=== PATIENT | male | born 1950 | race Caucasian/White ===

== ENCOUNTER 2018-04-22 22:31 | Emergency (ER) | payer OTHER ==
[~2018-04-22] VITALS: Ht 167.6 cm; Wt 77.0 kg
[2018-04-22 22:35] VITALS: TEMP 36.7; Ht 167.6 cm; Wt 77.0 kg
[2018-04-22] MEDS ORDERED: SODIUM CHLORIDE 0.9% 1000ML 1,000 ML IV STA (22:52)
[2018-04-22] MEDS ORDERED: MoRPHine SULFATE 4 MG/ML 1 ML CARP\\VIAL IV STA (22:52)
[2018-04-22] MEDS ORDERED: ONDANSETRON INJ 2 MG/ML 2 ML VIAL IV STA (22:52)
[2018-04-22] MEDS ORDERED: LORAZEPAM 2 MG/ML 1 ML VIAL IV STA (22:53)
[2018-04-22] MEDS ORDERED: OPTIRAY 320 IV PRN (23:00)
[2018-04-22 23:17] LABS: BASO % 0.2 %; BASO ABS # 0.03 K/uL (0-0.2); EOS ABS # 0.14 K/uL (0-0.5); HEMATOCRIT 41.6 % (42-52); HEMOGLOBIN 14.6 g/dL (14.0-18.0); IG# 0.04 K/uL (0.00-0.02); LYMPH ABS # 4.07 K/uL (1.2-3.4); MEAN CELL VOLUME 89.3 fL (80-100); MEAN CORPUSCULAR HEMOGLOBIN 31.3 pg (25-34); MEAN CORPUSCULAR HGB CONC 35.1 g/dl (32-36); MONO % 7.8 %; MONO ABS # 1.09 K/uL (0.11-0.59); NEUT % 61.7 %; NEUT ABS # 8.66 K/uL (1.4-6.5); PLATELET COUNT 342 K/uL (130-400); WHITE BLOOD COUNT 14.03 K/uL (4.8-10.8)
[2018-04-22] MEDS ORDERED: PATIENT'S ALLERGY INFO NEEDS ENTERED STA (23:22)
[2018-04-22 23:25] LABS: ISTAT IONIZED CALCIUM 1.17 mmol/l (1.12-1.32); ISTAT POTASSIUM 4.2 mEq/L (3.3-5.0)
[2018-04-22 23:39] LABS: ALBUMIN 3.9 gm/dl (3.4-5.0); ALKALINE PHOSPHATASE 102 U/L (45-117); ALT/SGPT 26 U/L (12-78); AST/SGOT 20 U/L (15-37); BLOOD UREA NITROGEN 24 mg/dl (7-18); CALCIUM 9.2 mg/dl (8.5-10.1); CARBON DIOXIDE 27 mmol/L (21-32); GLUCOSE 99 mg/dl (70-99); LIPASE 225 U/L (73-393); POTASSIUM 4.2 mmol/L (3.5-5.1); SODIUM 137 mmol/L (136-145); TOTAL PROTEIN 8.1 gm/dl (6.4-8.2)
[2018-04-23] MEDS ORDERED: LISI10TA PO (00:13)
[2018-04-23] MEDS ORDERED: ROSU20TA PO (00:14)
[2018-04-23] MEDS ORDERED: FLUO10CA48 PO (00:15)
[2018-04-23] MEDS ORDERED: CHN/1 PO (00:16)
[2018-04-23] MEDS ORDERED: ASPI1POW10 PO (00:17)
[2018-04-23 01:06] VITALS: PULSE 61
[2018-04-23 02:31] VITALS: BP 107/55
[2018-04-23 02:32] VITALS: O2SAT 100
[2018-04-23] MEDS ORDERED: ONDA4TAB10 SL (02:50)
[2018-04-23] MEDS ORDERED: ONDANSETRON HOME PACK 4MG OD TAB PO ONE (03:00)
[2018-04-23] MEDS ORDERED: ATIVAN 1MG HOMEPACK PO ONE (03:00)
--- NOTE | 2018-04-23 04:27 | EMERGENCY ROOM VISIT NOTE ---
History First contact with patient: 22:43 Chief Complaint: CHEST PAIN Stated Complaint: CHEST PAIN, ABDOMINAL PAIN Nursing Triage Summary: Pt reports chest pain that started yesterday. Pt with nausea and vomiting. History of Present Illness The patient is a 68 year old male who presents to the Emergency Room with complaints of intermittent chest pain with nausea and vomiting for the past day and half. Patient states that he felt nauseous and threw up a few times. He developed chest pain that has been intermittent for the past day and a half. Pain described as aching, ranging in severity 5 out of 10 that radiates to his back. Nothing makes it better or worse. He does smoke and he smokes marijuana. Patient does have high blood pressure and cholesterol. No prior heart testing. Patient denies abdominal pain, fever, chills, cough, congestion , urinary symptoms, leg pain or swelling localized weakness. Review of Systems An 10 system review of systems was completed with positives and pertinent negatives listed in the HPI. Past Medical/Surgical History Hypertension, hyperlipidemia, cataract surgery Social History Smoking Status: Current Every Day Smoker Drug Use: marijuana Marital Status: Housing Status: lives with family Current/Historical Medications Scheduled Fluoxetine (Prozac), 10 MG PO DAILY Lisinopril (Prinivil), 10 MG PO DAILY Ondasetron Odt (Zofran Odt), 4 MG SL Q6H Rosuvastatin Calcium (Crestor), 20 MG PO DAILY Varenicline (Chantix), 1 TAB PO BID Scheduled PRN Gppimwe-Agmbyeubghhot-Scvahhch (Goodys Extra Strength), 1 PKT PO TID PRN for Pain Physical Exam Vital Signs Date Time Temp Pulse Resp B/P (MAP) Pulse Ox O2 Delivery O2 Flow Rate FiO2 04/23/18 02:32 100 Room Air 04/23/18 02:31 107/55 04/23/18 01:32 122/57 04/23/18 01:06 61 20 99 04/23/18 01:05 122/57 04/23/18 00:36 59 19 99 04/23/18 00:31 99/66 04/23/18 00:30 54 16 99 Room Air 04/23/18 00:15 55 20 98 04/23/18 00:01 110/55 04/23/18 00:00 62 14 98 04/22/18 23:45 66 20 98 Room Air 04/22/18 23:34 119/60 04/22/18 23:15 64 04/22/18 23:00 Room Air 04/22/18 23:00 72 14 04/22/18 22:57 Room Air 04/22/18 22:35 36.7 73 16 105/69 97 Room Air Physical Exam VITALS: Vitals are noted on the nurse's note and reviewed by myself. Vital signs reviewed. GENERAL: White male, in no acute distress, nondiaphoretic, well-developed well- nourished. SKIN: The skin was without rashes, erythema, edema, or bruising. There is no tenting of the skin. Capillary reflex less than 2 seconds. HEAD: Normocephalic atraumatic. EARS: External auditory canals clear, tympanic membranes pearly irizarry without erythema or effusion bilaterally. EYES: Pupils equal round and reactive to light and accommodation. Conjunctivae without injection, sclerae without icterus. Extraocular movements intact. NOSE: Patent, turbinates without inflammation or discharge. No sinus tenderness. MOUTH: Mucous membranes moist. Pharynx without erythema or exudate. Uvula midline. Airway patent. Tongue does not deviate. NECK: Supple without nuchal rigidity. No lymphadenopathy. No thyromegaly. Cervical spine is nontender. No JVD. HEART: Regular rate and rhythm without murmurs gallops or rubs. LUNGS: Clear to auscultation bilaterally without wheezes, rales or rhonchi. No retractions or accessory muscle use. ABDOMEN: Positive bowel sounds x 4. Normal tympanic percussion. Soft, nontender, without masses or organomegaly. Chopra sign negative. No guarding or rebound tenderness. No CVA tenderness MUSCULOSKELETAL: No muscle atrophy, erythema, or edema noted. NEURO: Patient was alert and oriented to person place and time. Normal sensation to light and sharp touch. No focal neurological deficits. Medical Decision & Procedures Laboratory Results 04/22/18 23:05 Red Blood Count 4.66, Mean Corpuscular Volume 89.3, Mean Corpuscular Hemoglobin 31.3, Mean Corpuscular Hemoglobin Concent 35.1, Mean Platelet Volume 9.0, Neutrophils (%) (Auto) 61.7, Lymphocytes (%) (Auto) 29.0, Monocytes (%) (Auto) 7.8, Eosinophils (%) (Auto) 1.0, Basophils (%) (Auto) 0.2, Neutrophils # (Auto) 8.66, Lymphocytes # (Auto) 4.07, Monocytes # (Auto) 1.09, Eosinophils # (Auto) 0.14, Basophils # (Auto) 0.03 04/22/18 23:05 Test 04/22/18 23:05 04/22/18 23:10 04/22/18 23:13 04/23/18 02:33 White Blood Count 14.03 K/uL (4.8-10.8) Red Blood Count 4.66 M/uL (4.7-6.1) Hemoglobin 14.6 g/dL (14.0-18.0) Hematocrit 41.6 % (42-52) Mean Corpuscular Volume 89.3 fL (80-100) Mean Corpuscular Hemoglobin 31.3 pg (25-34) Mean Corpuscular Hemoglobin Concent 35.1 g/dl (32-36) Platelet Count 342 K/uL (130-400) Mean Platelet Volume 9.0 fL (7.4-10.4) Neutrophils (%) (Auto) 61.7 % Lymphocytes (%) (Auto) 29.0 % Monocytes (%) (Auto) 7.8 % Eosinophils (%) (Auto) 1.0 % Basophils (%) (Auto) 0.2 % Neutrophils # (Auto) 8.66 K/uL (1.4-6.5) Lymphocytes # (Auto) 4.07 K/uL (1.2-3.4) Monocytes # (Auto) 1.09 K/uL (0.11-0.59) Eosinophils # (Auto) 0.14 K/uL (0-0.5) Basophils # (Auto) 0.03 K/uL (0-0.2) RDW Standard Deviation 42.0 fL (36.4-46.3) RDW Coefficient of Variation 13.0 % (11.5-14.5) Immature Granulocyte % (Auto) 0.3 % Immature Granulocyte # (Auto) 0.04 K/uL (0.00-0.02) Est Creatinine Clear Calc Drug Dose 59.1 ml/min Estimated GFR () 72.6 Estimated GFR (Non- 62.6 BUN/Creatinine Ratio 20.3 (10-20) Calcium Level 9.2 mg/dl (8.5-10.1) Total Bilirubin 0.5 mg/dl (0.2-1) Direct Bilirubin 0.1 mg/dl (0-0.2) Aspartate Amino Transf (AST/SGOT) 20 U/L (15-37) Alanine Aminotransferase (ALT/SGPT) 26 U/L (12-78) Alkaline Phosphatase 102 U/L (45-117) Total Creatine Kinase 242 U/L (39-308) Troponin I < 0.015 ng/ml (0-0.045) Total Protein 8.1 gm/dl (6.4-8.2) Albumin 3.9 gm/dl (3.4-5.0) Lipase 225 U/L (73-393) Bedside Hemoglobin 15.0 g/dl (14.0-18.0) Bedside Hematocrit 44 % (42-52) Bedside Sodium 137 mEq/L (135-144) Bedside Potassium 4.2 mEq/L (3.3-5.0) Bedside Chloride 99 mEq/L (101-112) Bedside Total CO2 26 mEq/l (24-31) Anion Gap 17.0 mmol/L (16-25) Bedside Blood Urea Nitrogen 24 mg/dl (7-18) Bedside Creatinine 1.0 mg/dl (0.6-1.3) Bedside Glucose (other) 104 mg/dl (70-99) Bedside Ionized Calcium (Rafael) 1.17 mmol/l (1.12-1.32) Bedside D-Dimer > 450 ng/mlFEU (0-450) Bedside Troponin I < 0.030 ng/ml (0-0.045) Medications Administered Medications (Trade) Dose Ordered Sig/Luis M Route Start Time Stop Time Status Last Admin Dose Admin Sodium Chloride 1,000 ml @ 999 mls/hr Q1H1M STAT IV 04/22/18 22:52 04/22/18 23:52 DC 04/22/18 23:12 999 MLS/HR Ondansetron HCl (Zofran Inj) 4 mg NOW STAT IV 04/22/18 22:52 04/22/18 22:54 DC 04/22/18 23:13 4 MG Morphine Sulfate (MoRPHine SULFATE INJ) 4 mg NOW STAT IV 04/22/18 22:52 04/22/18 22:54 DC 04/22/18 23:15 4 MG Lorazepam (Ativan Inj) 1 mg NOW STAT IV 04/22/18 22:53 04/22/18 22:55 DC 04/22/18 23:16 1 MG Lorazepam (Ativan 1MG Home Pack) 1 homepack UD ONCE PO 04/23/18 03:00 04/23/18 03:01 DC 04/23/18 02:53 1 HOMEPACK Ondansetron HCl (ZOFRAN ODT 4MG Home Pack) 1 homepack UD ONCE PO 04/23/18 03:00 04/23/18 03:01 DC 04/23/18 02:53 1 HOMEPACK ED Course Prior records/ancillary studies reviewed. Triage Nursing notes reviewed. Additional history obtained from family. The patient's history was concerning for chest pain. Differential diagnosis: Etiologies such as cardiac ischemia, aortic dissection, pulmonary embolism, pneumonia, pneumothorax, musculoskeletal, infections, pericarditis, myocarditis , esophageal rupture, gastrointestinal, as well as others were entertained. Physical examination: As above. ER treatment provided: Ativan, Zofran, IV fluids On reassessment the patient felt better. Diagnostic interpretation by me: The electrocardiogram was negative for pathologic change. Normal sinus, normal intervals, no acute ST-T wave changes, rate of 62. Impression normal sinus rhythm interpreted by myself. I think arrhythmia is unlikely. EKG shows normal sinus rhythm with no interval abnormalities such as QT prolongation or WPW. There are no findings to suggest Brugada syndrome. Cardiac monitoring in the emergency department reveals no tachycardic or bradycardic dysrhythmia. Hypertrophic cardiomyopathy was considered but there are no clear historical elements pointing toward this. EKG is not suggestive. The QRS voltage is not extremely large and there are no suggestive Q waves. The labs revealed 2 negative troponins. Imaging studies: Chest x-ray as above with no acute consolidation, pneumothorax free of my interpretation CTA CHEST: No evidence of PE. Lungs are clear. No pleural effusions. No adenopathy. Heart size is normal. Aorta is unremarkable. Radiologist: Davy Luevano MD Gallbladder ultrasound with no acute findings per stat radiology HEART SCORE: Hx: high/mod/low suspicion: 1 ECG: ST depression/nonspecific changes/normal: 0 Age: Greater than 65/45-64/less than 45: 2 Risk factors: (Hypertension, hyperlipidemia, diabetes, coronary disease, tobacco use, cocaine use): 3 Troponin: Greater than 2 times normal limits/1-2 times normal limits/normal: 0 Total: 6 Exam and history seem consistent with chest pain and vomiting with concerns for cardiac in etiology. Patient refuses admission. He understands risks such as having a heart attack stroke or and verbalized understanding this. He is refusing to stay and would like to go home and follow-up outpatient. 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 She feels comfortable caring for her . Patient signed out AMA. Patient was advised to see the family care doctor Tuesday for outpatient stress echo test this week or to return to the ER for further evaluation and workup or as needed. Patient did have 2 negative troponins. Repeat EKG was normal sinus. CTA was negative. He did feel better after being medicated as above. By the evaluation outlined above emergent etiologies such as aortic dissection , pulmonary embolism, pneumonia, pneumothorax, infections, pericarditis, myocarditis, as well as others were deemed relatively unlikely. The pt informed about the findings as listed above. All questions were answered and pleased with the treatment. Return instructions were outlined and the patient was discharged in stable condition. Outpatient prescription management: Zofran, home pack Ativan Referral: The patient was referred back to primary care physician for follow-up in 2 to 3 days for a recheck of the current condition. Case reviewed with my attending The chart was completed utilizing [employer] Speech voice recognition software. Grammatical errors, random word insertions, pronoun errors, and incomplete sentences are an occassional consequence of this system due to software limitations, ambient noise, and hardware issues. Any formal questions or concerns about the content, text, or information contained within the body of this dictation should be directly addressed to the physician marketing operations assistant for clarification. Medical Decision As above Medication Reconcilliation Current Medication List: was personally reviewed by me Blood Pressure Screening Patient's blood pressure: Normal blood pressure Impression Primary Impression: Vomiting Additional Impression: Chest pain Departure Information Dispostion Against Medical Advice Condition GOOD Prescriptions Ondasetron Odt (ZOFRAN ODT) 4 Mg Tab 4 MG SL Q6H, #10 TAB Prov: Annie Lizama .JEFF 04/23/18 Forms Call Back Authorization, HOME CARE DOCUMENTATION FORM, IMPORTANT VISIT INFORMATION Patient Instructions Chest Pain - [facility], Vomiting - [facility], [facility] Additional Instructions You were leaving AGAINST MEDICAL ADVICE. You are at risk for having heart attack stroke and/or . I recommend that you get a echo stress test this week with the family care doctor/installation helper. Ibuprofen(Motrin, Advil) may be used for fever or pain. Use 600mg every six hours as needed. Take with food. Avoid using more than 2400mg in a 24 hour period. Do not use 2400mg per day for more than three consecutive days without physician direction. Prolonged inappropriate use can lead to stomach upset or ulcers. (AND/OR) Acetaminophen(Tylenol) may be used for fever or pain. Use 1000mg every six hours as needed. Avoid using more than 3000mg in a 24 hour period. Rest and drink plenty of fluids as tolerated. Continue current medications. Zofran 4 m tablet every 6 hours as needed for nausea and or vomiting. Ativan 1 m tablet every 8 hours as needed for anxiety. No alcohol or driving on this medication. Return to the ER immediately for worsening or persistent chest pain, abdominal pain, vomiting, fevers, chest pains, difficulty breathing, worsening of your condition, or as needed. Follow up with your primary physician in 2-3 days for a recheck of your current condition. Problem Qualifiers Primary Impression: Vomiting Vomiting type: unspecified Vomiting Intractability: unspecified Nausea presence: with nausea Qualified Codes: R11.2 - Nausea with vomiting, unspecified
--- NOTE | 2018-04-23 07:51 | DIAGNOSTIC IMAGING REPORT ---
ABDOMINAL ULTRASOUND, RIGHT UPPER QUADRANT HISTORY: Epigastric pain. COMPARISON: None. FINDINGS: Liver is sonographically normal. There is no biliary ductal dilatation. Gallbladder wall thickness is at the upper limits of normal. There are no gallstones. No sonographic Chopra sign was reported. There is no pericholecystic fluid. Pancreas is within normal limits although pancreatic tail is slightly. There is no right hydronephrosis. IMPRESSION: No significant abnormality identified within the right upper quadrant. Electronically signed by: Trae Pugh M.D. 04/23/2018 7:50 AM Dictated Date/Time: 04/23/2018 7:49 AM
--- NOTE | 2018-04-23 08:34 | DIAGNOSTIC IMAGING REPORT ---
CHEST ONE VIEW PORTABLE CLINICAL HISTORY: Chest and abdominal pain. COMPARISON STUDY: No previous studies for comparison. FINDINGS: Lung volumes are normal. There is no pneumothorax or pleural effusion. There is no consolidation or evidence for pulmonary edema. Cardiac size is normal. Mediastinal contours are normal. IMPRESSION: No acute cardiopulmonary findings. Electronically signed by: Trae Pugh M.D. 04/23/2018 8:33 AM Dictated Date/Time: 04/23/2018 8:32 AM
--- NOTE | 2018-04-23 08:42 | DIAGNOSTIC IMAGING REPORT ---
CHEST COMBO ANGIO DISSECTION CLINICAL HISTORY: Chest pain, back pain, nausea and vomiting. Evaluate for dissection. COMPARISON STUDY: Chest radiograph April 22, 2018 at 11:11 PM. TECHNIQUE: Unenhanced and arterial phase imaging of the chest was performed. Intravenous injection of 94 cc of Optiray 320 IV was uneventful. Sagittal and coronal reconstructions were viewed as well as maximal intensity projections on an independent 3-D workstation. FINDINGS: Caliber of the thoracic aorta is normal. There is moderate atherosclerotic plaque within the thoracic aorta without dissection or intramural hematoma. The size of the heart is normal. There is no pericardial effusion. No enlarged thoracic lymph nodes are present. No central pulmonary embolus is present. There is no consolidation to suggest pneumonia. Mild emphysema is noted. A few calcified granulomas are noted. Several smallest subpleural pulmonary nodules are indeterminate but likely benign. There is no consolidation to suggest pneumonia. Bony thorax and upper abdomen are unremarkable. IMPRESSION: 1. No thoracic aortic dissection. 2. No acute intrathoracic findings. 3. Moderate emphysema. 4. No consolidation to suggest pneumonia. Electronically signed by: Trae Pugh M.D. 04/23/2018 8:40 AM Dictated Date/Time: 04/23/2018 8:33 AM
== END 2018-04-23 02:55 | disposition left against medical advice (07) ==
LOC: C.EDB 22:33 → C.EDA 04-23 02:55
DX: R07.9 Chest pain, unspecified (principal); R11.2 Nausea with vomiting, unspecified; F17.210 Nicotine dependence, cigarettes, uncomplicated; F12.90 Cannabis use, unspecified, uncomplicated; I10 Essential (primary) hypertension; E78.5 Hyperlipidemia, unspecified; Z98.49 Cataract extraction status, unspecified eye; Z79.899 Other long term (current) drug therapy